=== PATIENT | female | born 1990 | race Caucasian/White ===

== ENCOUNTER 2019-08-23 09:26 | Emergency (ER) | payer OTHER ==
[~2019-08-23] VITALS: Ht 152.4 cm; Wt 78.5 kg
[~2019-08-23 09:26] MED LIST: ADDERALL 15 MG15 MG PO; ALBUTEROL2.5 MG/31 INH; DELTASONE20 MG PO; MEDROLDOSEPACK PO; PROAIR HFA8.5 GM PO; TEGRETOL200 MG PO; VENTOLIN HFA 1818 GM INH
[2019-08-23] MEDS ORDERED: LEXAPRO20 MG PO (09:33)
[2019-08-23] MEDS ORDERED: PROAIR HFA8.5 GM INH (10:46)
[2019-08-23] MEDS ORDERED: MEDROLDOSEPACK PO (10:46)
[2019-08-23 10:58] VITALS: BP 122/72
== END 2019-08-23 10:58 | disposition home or self-care (01) ==
LOC: M.ERS 09:26
DX: J45.901 Unspecified asthma with (acute) exacerbation (principal); F31.9 Bipolar disorder, unspecified; Z88.5 Allergy status to narcotic agent; Z88.8 Allergy status to other drugs, medicaments and biological substances